=== PATIENT | male | born 1960 | race Caucasian/White ===

== ENCOUNTER 2023-09-03 13:27 | Outpatient (CLI) | payer MEDICARE | END 2023-09-03 13:28 | disposition home or self-care (01) | LOC: RAD 13:27 | PROVIDERS: ATTEND Internal Medicine | DX: R06.00 Dyspnea, unspecified (principal); I51.7 Cardiomegaly | CPT/HCPCS: 71046 ==

== ENCOUNTER 2024-01-13 11:51 | Inpatient (IN) | payer MEDICARE ==
[2024-01-13 12:50] LABS: #Basophils Less than 0.03 10x3/uL (0.0-0.2); %Basophils 0.3 % (0.0-1.0); %Eosinophils 3.2 % (0.0-10.0); %Lymphocytes 21.1 % (21.0-51.0); %Monocytes 8.9 % (0.0-10.0); Hematocrit 40.7 % (42.0-52.0); Mean Corpuscular HGB CONC 31.9 g/dL (32.0-36.0); Mean Corpuscular Hemoglobin 30.2 pg (27.0-31.0); Mean Corpuscular Volume 94.4 fL (78.0-98.0); Mean Platelet Volume 11.5 fL (7.4-10.4); Platelet Count 124 10x3/uL (130-400); RBC Distribution Width 14.7 % (11.5-14.5); Red Blood Cell (RBC) Count 4.31 mill/uL (4.70-6.10)
[2024-01-13] MEDS ORDERED: Haloperidol Lactate 5 MG/ML VIAL ONE (13:05)
[2024-01-13 13:08] LABS: Acetaminophen Less than 10 mcg/mL (Less than 10); Alcohol Less than 10.0 mg/dL (Less than 10); Salicylate Less than 8.0 mg/dL (Less than 8.0)
[2024-01-13 13:09] LABS: ALT (SGPT) 9 U/L (8-55); AST (SGOT) 13 U/L (5-34); Albumin 3.2 g/dL (3.4-4.8); Alkaline Phosphatase 50 U/L (40-110); Anion Gap 13 mmol/L (10-20); BUN (Urea Nitrogen) 13 mg/dL (8.4-25.7); Bilirubin, Total 0.5 mg/dL (0.2-1.2); Calc. Creatinine Clearance 0 mL/min (70-130); Calcium 8.4 mg/dL (7.8-10.44); Carbon Dioxide 29 mmol/L (23-31); Chloride 102 mmol/L (98-107); Estimated GFR 99; Globulin 3.5 g/dL (2.4-3.5); Glucose 92 mg/dL (80-115); Potassium 4.6 mmol/L (3.5-5.1); Protein, Total 6.7 g/dL (5.8-8.1); Sodium 139 mmol/L (136-145)
[2024-01-13 15:16] LABS: Bacteria/HPF None Seen HPF (None Seen); Bilirubin Negative (Negative); Blood, Urine 2+ (Negative); CAUTI Indications for Culture Immunosuppressed; Clarity Clear (Clear); Glucose, Urine (Dipstick) Normal (Negative); Ketone, Urine 20 mg/dL (Negative); Leukocyte 250 Leu/uL (Negative); Nitrite Negative (Negative); Protein, Urine (Dipstick) 10 mg/dL (Neg-Trace); Specific Gravity, Urine 1.025 (1.002-1.036); Squamous Epithelial 0-3 HPF (0-3); Urobilinogen Normal mg/dL (Less than 2)
[2024-01-13 15:19] LABS: Amphetamine Not Detected (NotDetected); Barbiturates Screen Not Detected (NotDetected); Benzodiazepine Screen Detected (NotDetected); Cocaine Metabolite Screen Not Detected (NotDetected); Methadone Not Detected (NotDetected); Methamphetamine Not Detected (NotDetected); Opiate Screen Not Detected (NotDetected); Oxycodone Screen Not Detected (NotDetected); Phencyclidine (PCP) Not Detected (NotDetected); THC/Cannabinoid Screen Not Detected (NotDetected); Tricyclic Screen Detected (NotDetected); Urine Culture Reflex Yes Yes
[2024-01-13] MEDS ORDERED: cefTRIAXone (ROCEPHIN) 2 GM VIAL ONE (15:52)
[2024-01-13] MEDS ORDERED: Sodium Chloride 0.9% 100 ML ONE (15:54)
[2024-01-13] MEDS ORDERED: Ondansetron PF 4 MG/2 ML Vial IVP PRN (16:23)
[2024-01-13] MEDS ORDERED: Senokot S 8.6-50 MG TAB PO PRN (16:23)
[2024-01-13] MEDS ORDERED: Guaifenesin DM 100-10/5 ML UDCUP PO PRN (16:23)
[2024-01-13] MEDS ORDERED: Dextrose 5% in Water 1,000 ML IV PRN (16:57)
[2024-01-13] MEDS ORDERED: Glucagon 1 MG/ML KIT IM PRN (16:57)
[2024-01-13] MEDS ORDERED: Dextrose 50% Abboject 50 ML SYRINGE SLOW IVP PRN (16:57)
[2024-01-13] MEDS ORDERED: Insulin Regular, Human 100 UNIT/ML 10 ML VIAL SC PRN (16:57)
[2024-01-13 18:16] VITALS: BMI 33.3
[2024-01-13] MEDS: cefTRIAXone\\ROCEPHIN 1 GM in Sodium Chloride 0.9% 100 ML IVPB SCH (18:39)
[2024-01-13] MEDS: Sodium Chloride 0.9% 1,000 ML IV SCH (18:39)
[2024-01-13] MEDS: Acetaminophen 325 MG TAB PO PRN (18:47)
[2024-01-13] MEDS: Atorvastatin Calcium 10 MG TAB PO SCH (21:37)
[2024-01-13] MEDS: Diazepam 5 MG TAB PO SCH (21:37)
[2024-01-14 00:17] VITALS: TEMP 97.8
[2024-01-14 05:18] LABS: ALT (SGPT) 8 U/L (8-55); AST (SGOT) 11 U/L (5-34); Albumin 2.8 g/dL (3.4-4.8); Alkaline Phosphatase 44 U/L (40-110); Anion Gap 10 mmol/L (10-20); BUN (Urea Nitrogen) 14 mg/dL (8.4-25.7); Bilirubin, Total 0.3 mg/dL (0.2-1.2); Calc. Creatinine Clearance 164 mL/min (70-130); Calcium 7.8 mg/dL (7.8-10.44); Carbon Dioxide 32 mmol/L (23-31); Chloride 104 mmol/L (98-107); Estimated GFR 102; Globulin 3.2 g/dL (2.4-3.5); Glucose 95 mg/dL (80-115); Potassium 4.2 mmol/L (3.5-5.1); Sodium 142 mmol/L (136-145)
[2024-01-14] MEDS: Levothyroxine Sodium 50 MCG TAB PO SCH (05:23)
[2024-01-14 05:56] LABS: #Basophils Less than 0.03 10x3/uL (0.0-0.2); %Basophils 0.3 % (0.0-1.0); %Eosinophils 6.4 % (0.0-10.0); %Lymphocytes 30.3 % (21.0-51.0); %Monocytes 11.6 % (0.0-10.0); %Neutrophils 51.1 % (42.0-75.0); Hematocrit 38.2 % (42.0-52.0); Hemoglobin 11.7 g/dL (14.0-18.0); Mean Corpuscular HGB CONC 30.6 g/dL (32.0-36.0); Mean Corpuscular Hemoglobin 29.4 pg (27.0-31.0); Platelet Count 101 10x3/uL (130-400); RBC Distribution Width 14.5 % (11.5-14.5); Red Blood Cell (RBC) Count 3.98 mill/uL (4.70-6.10)
[2024-01-14] MEDS: Citalopram 20 MG TAB PO SCH (08:28)
[2024-01-14] MEDS: glipiZIDE XL 5 mg ER.TAB PO SCH (08:28)
[2024-01-14] MEDS: Enoxaparin 40 MG (0.4 mL) SYRINGE SC SCH (08:30)
[2024-01-14 10:21] VITALS: BMI 33.3
[2024-01-14] MEDS ORDERED: Ibuprofen 200 MG TAB PO PRN (16:10)
[2024-01-14 16:26] VITALS: BP 137/81
== END 2024-01-14 19:00 | DRG 896 ==
LOC: ERS 11:51 → T4-B 15:57
PROVIDERS: ADMIT Hospitalist; ATTEND Internal Medicine
DX: F13.931 Sedative, hypnotic or anxiolytic use, unspecified with withdrawal delirium (principal); G92.8 Other toxic encephalopathy; N39.0 Urinary tract infection, site not specified; F15.23 Other stimulant dependence with withdrawal; E11.9 Type 2 diabetes mellitus without complications; R62.50 Unspecified lack of expected normal physiological development in childhood; E03.9 Hypothyroidism, unspecified; F41.9 Anxiety disorder, unspecified; F32.A Depression, unspecified; B36.9 Superficial mycosis, unspecified; F71 Moderate intellectual disabilities; Z79.899 Other long term (current) drug therapy; Z79.890 Hormone replacement therapy
CPT/HCPCS: 36415; 36416; 70450; 80053; 80306; 80307; 81001; 82550; 84443; 85025; 87086; 93005; 93306; 96361; 96365; 96375; J0696; J1630; J1650; J7030

== ENCOUNTER 2024-11-12 21:32 | Emergency (ER) | payer MEDICARE ==
[2024-11-12 22:26] LABS: #Basophils Less than 0.03 10x3/uL (0.0-0.2); #Eosinophils 0.26 10x3/uL (0.0-0.7); #Monocytes 0.62 10x3/uL (0.11-0.59); #Neutrophils 3.73 10x3/uL (1.40-6.50); %Basophils 0.3 % (0.0-1.0); %Eosinophils 3.8 % (0.0-10.0); %Lymphocytes 32.8 % (21.0-51.0); %Monocytes 9.0 % (0.0-10.0); %Neutrophils 54.0 % (42.0-75.0); Hematocrit 36.1 % (42.0-52.0); Hemoglobin 11.9 g/dL (14.0-18.0); Mean Corpuscular Hemoglobin 29.3 pg (27.0-31.0); Mean Corpuscular Volume 88.9 fL (78.0-98.0); Platelet Count 121 10x3/uL (130-400); Red Blood Cell (RBC) Count 4.06 mill/uL (4.70-6.10); White Blood Cell (WBC) Count 6.90 10x3/uL (4.8-10.8)
[2024-11-12 22:47] LABS: Acetaminophen Less than 10 mcg/mL (Less than 10); Salicylate Less than 8.0 mg/dL (Less than 8.0)
[2024-11-12 22:48] LABS: ALT (SGPT) 13 U/L (Less than 45); AST (SGOT) 21 U/L (11-34); Albumin 3.6 g/dL (3.1-4.5); Alkaline Phosphatase 78 U/L (40-110); Anion Gap 11 mmol/L (10-20); BUN (Urea Nitrogen) 29 mg/dL (8.4-25.7); Bilirubin, Total 0.1 mg/dL (0.3-1.2); CK (CPK) 48 U/L (30-200); Calc. Creatinine Clearance 0 mL/min (70-130); Calcium 8.8 mg/dL (7.8-10.44); Carbon Dioxide 29 mmol/L (23-31); Chloride 105 mmol/L (98-107); Globulin 3.1 g/dL (2.4-3.5); Glucose 120 mg/dL (80-115); Potassium 4.1 mmol/L (3.5-5.1); Sodium 141 mmol/L (136-145)
[2024-11-12 23:34] LABS: Bacteria/HPF None Seen HPF (None Seen); CAUTI Indications for Culture Dysuria,urgency,freq; Glucose, Urine (Dipstick) Normal (Negative); Leukocyte Negative Leu/uL (Negative); Protein, Urine (Dipstick) Negative (Neg-Trace); RBC/HPF None Seen HPF (0-3); Specific Gravity, Urine 1.026 (1.002-1.036); WBC/HPF 0-3 HPF (0-3)
[2024-11-12 23:41] LABS: Cocaine Metabolite Screen Negative (Negative); THC/Cannabinoid Screen Negative (Negative); Tricyclic Screen Negative (Negative)
[2024-11-12 23:47] LABS: Urine Culture Reflex No No
[2024-11-13] MEDS ORDERED: Sertraline 100 MG TAB ONE (07:21)
[2024-11-13] MEDS ORDERED: Furosemide 40 MG TAB ONE (07:21)
[2024-11-13] MEDS ORDERED: OLANZapine 10 MG VIAL IM ONE (13:36)
[2024-11-13] MEDS ORDERED: OLANZapine 5 MG TAB ONE (13:37)
== END 2024-11-13 14:10 ==
LOC: ERS 21:32
DX: R45.851 Suicidal ideations (principal); E11.9 Type 2 diabetes mellitus without complications; Z87.891 Personal history of nicotine dependence; R41.0 Disorientation, unspecified
CPT/HCPCS: 80306; 80307 ×2; 81001; 82550; 93005; 96372; 99285; J3486; 80053; 84443; 85025; 87086

== ENCOUNTER 2025-03-08 07:37 | Emergency (ER) | payer MEDICARE ==
[2025-03-08 08:30] LABS: Bacteria/HPF None Seen HPF (None Seen); CAUTI Indications for Culture Alt mental st,lethar; Glucose, Urine (Dipstick) Normal (Negative); Leukocyte Negative Leu/uL (Negative); Protein, Urine (Dipstick) Negative (Neg-Trace); RBC/HPF 0-3 HPF (0-3); Specific Gravity, Urine 1.013 (1.002-1.036); WBC/HPF 0-3 HPF (0-3)
[2025-03-08 08:38] LABS: Urine Culture Reflex No No
[2025-03-08 08:51] LABS: ALT (SGPT) 7 U/L (Less than 45); AST (SGOT) 21 U/L (11-34); Albumin 3.5 g/dL (3.1-4.5); Alkaline Phosphatase 79 U/L (40-110); Anion Gap 16 mmol/L (10-20); BUN (Urea Nitrogen) 10 mg/dL (8.4-25.7); Bilirubin, Total 0.3 mg/dL (0.3-1.2); Calc. Creatinine Clearance 0 mL/min (70-130); Calcium 8.8 mg/dL (7.8-10.44); Carbon Dioxide 32 mmol/L (23-31); Chloride 99 mmol/L (98-107); Globulin 3.5 g/dL (2.4-3.5); Glucose 100 mg/dL (80-115); Potassium 3.7 mmol/L (3.5-5.1); Sodium 143 mmol/L (136-145)
[2025-03-08 08:57] LABS: #Basophils Less than 0.03 10x3/uL (0.0-0.2); #Eosinophils 0.21 10x3/uL (0.0-0.7); #Monocytes 1.26 10x3/uL (0.11-0.59); #Neutrophils 3.60 10x3/uL (1.40-6.50); %Basophils 0.3 % (0.0-1.0); %Eosinophils 3.1 % (0.0-10.0); %Lymphocytes 25.0 % (21.0-51.0); %Monocytes 18.5 % (0.0-10.0); %Neutrophils 52.8 % (42.0-75.0); Hematocrit 38.3 % (42.0-52.0); Hemoglobin 12.7 g/dL (14.0-18.0); Mean Corpuscular Hemoglobin 28.4 pg (27.0-31.0); Mean Corpuscular Volume 85.7 fL (78.0-98.0); Platelet Count 122 10x3/uL (130-400); Red Blood Cell (RBC) Count 4.47 mill/uL (4.70-6.10); White Blood Cell (WBC) Count 6.81 10x3/uL (4.8-10.8)
[2025-03-08 09:08] LABS: Free T4 (Free Thyroxine) 1.26 ng/dL (0.70-1.48); Thyroid Stimulating Hormone 3.544 uIU/mL (0.35-4.94)
[2025-03-08 09:40] LABS: Platelet Adequacy Comment Platelets Decreased
== END 2025-03-08 10:36 ==
LOC: ERS 07:37
DX: G47.00 Insomnia, unspecified (principal); E11.9 Type 2 diabetes mellitus without complications; Z87.891 Personal history of nicotine dependence
CPT/HCPCS: 51701; 81001; 84439; 94760; 96372; 99285; J1630; 80053; 84443; 85025